=== PATIENT | male | born 1965 | race Caucasian/White ===

== ENCOUNTER 2018-04-18 06:36 | Day surgery (SDC) | payer OTHER ==
[~2018-04-18] VITALS: Ht 157.5 cm; Wt 71.8 kg
[~2018-04-18 06:36] MED LIST: DIPH25 PO; IBUP-2070 PO; MULT-1203 PO; RINGERS SOLUTION,LACTATED 1,000 ML IV ONE; RISP1 PO
[2018-04-18] MEDS ORDERED: PHENYLEPHRINE HCL 1% 15 ML NASAL SPRAY NASAL ONE (06:37)
[2018-04-18] MEDS ORDERED: LIDOCAINE HCL/PF 2% 5 ML VIAL IM ONE (06:37)
[2018-04-18] MEDS ORDERED: METOCLOPRAMIDE HCL 5 MG/ML 2 ML VIAL IVP ONE (06:37)
[2018-04-18] MEDS ORDERED: PROPOFOL 1% 20 ML VIAL IVP ONE (06:37)
[2018-04-18] MEDS ORDERED: GLYCOPYRROLATE 0.2 MG/ML VIAL IM ONE (06:37)
[2018-04-18] MEDS ORDERED: DEXAMETHASONE SOD PHOS 4 MG/ML VIAL IVP ONE (06:37)
[2018-04-18] MEDS ORDERED: SUCCINYLCHOLINE CHLORIDE 20 MG/ML 10 ML VIAL IVP ONE ×2 (06:37)
[2018-04-18] MEDS ORDERED: AMPICILLIN SODIUM 1 GM/VIAL ONE ×2 (06:45→07:53)
[2018-04-18] MEDS ORDERED: RINGERS SOLUTION,LACTATED 1,000 ML IV ONE ×2 (07:00→11:53)
[2018-04-18] MEDS ORDERED: MEPERIDINE HCL/PF 25 MG/0.5 ML AMP IVP PRN (09:45)
[2018-04-18] MEDS ORDERED: HYDROmorphone 2 MG/ML SYRINGE IVP PRN (09:45)
[2018-04-18] MEDS ORDERED: OXYGEN THERAPY IH SCH (09:45)
[2018-04-18] MEDS: FentaNYL CITRATE-PF 100 MCG/2 ML VIAL IVP PRN ×2 (12:30→12:35)
[2018-04-18] MEDS ORDERED: FentaNYL CITRATE-PF 100 MCG/2 ML VIAL ONE (12:33)
[2018-04-18] MEDS ORDERED: MEPERIDINE HCL/PF 25 MG/0.5 ML AMP ONE (12:39)
== END 2018-04-18 14:05 | disposition home or self-care (01) ==
LOC: SURGERY 06:36 → EDSTATUS 10:15 → SURGERY 14:05
PROVIDERS: ATTEND Dentist General Practice
DX: K05.30 Chronic periodontitis, unspecified (principal); F72 Severe intellectual disabilities; K21.9 Gastro-esophageal reflux disease without esophagitis; Q90.9 Down syndrome, unspecified; Z91.011 Allergy to milk products; Z79.1 Long term (current) use of non-steroidal anti-inflammatories (NSAID); Z79.899 Other long term (current) drug therapy
CPT/HCPCS: 41899; 71045; 93005; J0290; J0330; J1100; J2704; J2765; J3010; J3490 ×2; J7120

== ENCOUNTER 2018-08-25 12:59 | Inpatient (IN) | payer MEDICARE, OTHER ==
[~2018-08-25] VITALS: Ht 157.5 cm; Wt 56.8 kg
[~2018-08-25 12:59] MED LIST changes: -RINGERS SOLUTION,LACTATED 1,000 ML IV ONE
[2018-08-25 13:49] LABS: BASOPHILS % (AUTO) 0.8 % (0.0-2.0); EOSINOPHILS % (AUTO) 0.8 % (1.0-6.0); HEMATOCRIT 41.4 % (41-53); HEMOGLOBIN 14.1 g/dL (13.5-17.5); LYMPHOCYTES # (AUTO) 2.3 K/uL (1.0-4.8); LYMPHOCYTES % (AUTO) 54.1 % (22.0-44.0); MEAN CORPUSCULAR HEMOGLOBIN 32.5 pg (26.0-34.0); MEAN CORPUSCULAR HGB CONC 34.1 G/dL (31.0-37.0); MEAN CORPUSCULAR VOLUME 95 fL (80-100); MONOCYTES # (AUTO) 0.4 K/uL (0.1-1.0); MONOCYTES % (AUTO) 9.8 % (2.0-9.0); NEUTROPHILS # (AUTO) 1.5 K/uL (1.8-7.7); NEUTROPHILS % (AUTO) 34.5 % (40.0-70.0); PLATELET COUNT (AUTO) 347 K/uL (150-450); RED BLOOD CELL COUNT(AUTO) 4.35 MIL/uL (4.50-5.90); RED CELL DISTRIBUTION WIDTH 14.9 % (11.5-14.5)
[2018-08-25 13:58] LABS: ANION GAP 5 mmol/L (8-16); CALCIUM, TOTAL 8.6 mg/dL (8.8-10.5); CARBON DIOXIDE 33 mmol/L (22-29); CHLORIDE 101 mmol/L (98-107); CREATININE 0.98 mg/dL (0.60-1.30); GLOMERULAR FILTR. RATE CALC > 60 mL/min (>60); GLUCOSE,RANDOM 102 mg/dL (70-110); POTASSIUM 3.7 mmol/L (3.5-5.1); SODIUM SERUM 139 mmol/L (136-145); UREA NITROGEN, BLOOD 10 mg/dL (7-18)
[2018-08-25 14:04] LABS: ALANINE AMINOTRANSFERASE 47 U/L (12-78); ALBUMIN 3.1 g/dL (3.4-5.0); ALKALINE PHOSPHATASE 108 U/L (46-116); ASPARTATE AMINOTRANSFERASE 34 U/L (15-37); BILIRUBIN,TOTAL 0.4 mg/dL (0.1-1.0); C-REACTIVE PROTEIN QUANT 0.99 mg/dL (0.00-0.30); TOTAL PROTEIN, SERUM 8.7 g/dL (6.4-8.2)
[2018-08-25 14:45] LABS: ERYTHROCYTE SEDIMENTATION RATE 60 MM/HR (0-15)
[2018-08-25 14:51] LABS: APPEARANCE,URINE CLEAR (CLEAR); BILIRUBIN,URINE NEGATIVE (NEGATIVE); GLUCOSE, URINE (UA) NEGATIVE (NEGATIVE); KETONES,URINE NEGATIVE (NEGATIVE); LEUKOCYTE ESTERASE ,URINE NEGATIVE (NEGATIVE); NITRATE,URINE NEGATIVE (NEGATIVE); OCCULT BLOOD,URINE NEGATIVE (NEGATIVE); PH,URINE 6.5 (5.0-8.0); PROTEIN,URINE NEGATIVE (NEGATIVE); UROBILINOGEN,URINE 0.2 mg/dL (<=1.0)
[2018-08-25] MEDS ORDERED: ALBUTEROL SULFATE 2.5 MG/0.5 ML NEB SOLUTION NEB ONE (15:30)
[2018-08-25] MEDS ORDERED: IPRATROPIUM BROMIDE 0.5 MG/2.5 ML NEB SOLUTION NEB ONE (15:30)
[2018-08-25] MEDS ORDERED: VANCOMYCIN HCL 1 GM/D5% WATER 200 ML IV ONE (15:30)
[2018-08-25] MEDS ORDERED: 0.9% SODIUM CHLORIDE 5 ML NEB SOLUTION NEB ONE (15:41)
[2018-08-25] MEDS ORDERED: ACETAMINOPHEN 325 MG TABLET PO PRN (16:00)
[2018-08-25] MEDS ORDERED: ONDANSETRON HCL 4 MG/2 ML VIAL IVP PRN ×2 (16:00→19:30)
[2018-08-25] MEDS ORDERED: 0.9% SODIUM CHLORIDE 10 ML SYRINGE IVP PRN ×2 (16:00→19:30)
[2018-08-25] MEDS ORDERED: MAGNESIUM SULFATE 4 GM/WATER 100 ML IV PRN (19:30)
[2018-08-25] MEDS ORDERED: POTASSIUM CHLORIDE 20 MEQ ER TABLET PO PRN (19:30)
[2018-08-25] MEDS ORDERED: MAGNESIUM SULFATE 2 GM/WATER 50 ML IV PRN (19:30)
[2018-08-25] MEDS ORDERED: MAGNESIUM OXIDE 400 MG TABLET PO PRN (19:30)
[2018-08-25] MEDS ORDERED: ZOLPIDEM TARTRATE 5 MG TABLET PO PRN (19:30)
[2018-08-25] MEDS ORDERED: IBUPROFEN 600 MG TABLET PO PRN (19:30)
[2018-08-25] MEDS ORDERED: POTASSIUM CHL 10 MEQ/WATER 50 ML IV PRN (19:30)
[2018-08-25] MEDS: PANTOPRAZOLE SODIUM 40 MG/VIAL IVP SCH (20:16)
[2018-08-25] MEDS: RisperiDONE 1 MG TABLET PO SCH (20:16)
[2018-08-25] MEDS: DiphenhydrAMINE HCL 25 MG CAPSULE PO SCH (20:16)
[2018-08-25] MEDS: ENOXAPARIN SODIUM 40 MG/0.4 ML PF SYRINGE SQ SCH (20:16)
[2018-08-25] MEDS: MULTIVITAMINS, THERAPEUTIC TABLET PO SCH (20:19)
[2018-08-25 20:22] VITALS: BP 144/98
[2018-08-25] MEDS: MVI, ADULT NO.1 WITH VIT K 10 ML in SODIUM CHLORIDE 0.9% 1,000 ML IV SCH ×2 (21:40)
[2018-08-26] VITALS (7 sets, daily range): BP systolic 99–159; BP diastolic 58–96
[2018-08-26 06:53] LABS: BASOPHILS % (AUTO) 1.1 % (0.0-2.0); EOSINOPHILS % (AUTO) 0.9 % (1.0-6.0); HEMATOCRIT 37.1 % (41-53); LYMPHOCYTES # (AUTO) 1.6 K/uL (1.0-4.8); LYMPHOCYTES % (AUTO) 46.5 % (22.0-44.0); MEAN CORPUSCULAR HEMOGLOBIN 33.5 pg (26.0-34.0); MEAN CORPUSCULAR HGB CONC 35.2 G/dL (31.0-37.0); MEAN CORPUSCULAR VOLUME 95 fL (80-100); MONOCYTES # (AUTO) 0.4 K/uL (0.1-1.0); MONOCYTES % (AUTO) 10.6 % (2.0-9.0); NEUTROPHILS # (AUTO) 1.4 K/uL (1.8-7.7); NEUTROPHILS % (AUTO) 40.9 % (40.0-70.0); PLATELET COUNT (AUTO) 287 K/uL (150-450); RED BLOOD CELL COUNT(AUTO) 3.89 MIL/uL (4.50-5.90); RED CELL DISTRIBUTION WIDTH 14.9 % (11.5-14.5)
[2018-08-26 07:01] LABS: ALANINE AMINOTRANSFERASE 38 U/L (12-78); ALBUMIN 2.6 g/dL (3.4-5.0); ALKALINE PHOSPHATASE 93 U/L (46-116); ANION GAP 5 mmol/L (8-16); ASPARTATE AMINOTRANSFERASE 27 U/L (15-37); BILIRUBIN,TOTAL 0.5 mg/dL (0.1-1.0); C-REACTIVE PROTEIN QUANT 0.75 mg/dL (0.00-0.30); CALCIUM, TOTAL 8.1 mg/dL (8.8-10.5); CARBON DIOXIDE 30 mmol/L (22-29); CHLORIDE 105 mmol/L (98-107); CREATININE 0.86 mg/dL (0.60-1.30); GLOMERULAR FILTR. RATE CALC > 60 mL/min (>60); GLUCOSE,RANDOM 91 mg/dL (70-110); POTASSIUM 3.5 mmol/L (3.5-5.1); SODIUM SERUM 140 mmol/L (136-145); TOTAL PROTEIN, SERUM 7.2 g/dL (6.4-8.2); UREA NITROGEN, BLOOD 7 mg/dL (7-18)
[2018-08-26 08:27] LABS: ERYTHROCYTE SEDIMENTATION RATE 45 MM/HR (0-15)
[2018-08-26] MEDS: RisperiDONE 1 MG TABLET PO SCH (08:41)
[2018-08-26] MEDS: PANTOPRAZOLE SODIUM 40 MG/VIAL IVP SCH (08:41)
[2018-08-26] MEDS: MULTIVITAMINS, THERAPEUTIC TABLET PO SCH (08:41)
[2018-08-26] MEDS: ENOXAPARIN SODIUM 40 MG/0.4 ML PF SYRINGE SQ SCH (08:41)
[2018-08-26] MEDS: CefTRIAXone 1 GM/DEXTROSE 50 ML IV SCH (13:08)
[2018-08-26] MEDS: AZITHROMYCIN 500 MG/NS 250 ML IV SCH (13:44)
[2018-08-26] MEDS: MVI, ADULT NO.1 WITH VIT K 10 ML in SODIUM CHLORIDE 0.9% 1,000 ML IV SCH ×2 (20:07)
[2018-08-26] MEDS: DiphenhydrAMINE HCL 25 MG CAPSULE PO SCH (20:07)
[2018-08-27 05:15] VITALS: BP 130/49
[2018-08-27 07:37] VITALS: BP 105/59
[2018-08-27] MEDS: PANTOPRAZOLE SODIUM 40 MG/VIAL IVP SCH (08:51)
[2018-08-27] MEDS: ENOXAPARIN SODIUM 40 MG/0.4 ML PF SYRINGE SQ SCH (08:51)
[2018-08-27] MEDS: RisperiDONE 1 MG TABLET PO SCH (08:51)
[2018-08-27] MEDS: MULTIVITAMINS, THERAPEUTIC TABLET PO SCH (08:51)
[2018-08-27 11:28] VITALS: BP 107/52
[2018-08-27] MEDS: CefTRIAXone 1 GM/DEXTROSE 50 ML IV SCH (12:21)
[2018-08-27] MEDS: MVI, ADULT NO.1 WITH VIT K 10 ML in SODIUM CHLORIDE 0.9% 1,000 ML IV SCH ×2 (12:21)
[2018-08-27] MEDS: AZITHROMYCIN 500 MG/NS 250 ML IV SCH (13:41)
[2018-08-27 16:06] VITALS: BP 108/57
[2018-08-27 19:54] VITALS: BP 101/53
[2018-08-27] MEDS: DiphenhydrAMINE HCL 25 MG CAPSULE PO SCH (21:10)
[2018-08-27 23:53] VITALS: BP 121/67
[2018-08-28 03:41] VITALS: BP 113/65
[2018-08-28 07:26] VITALS: BP 122/62
[2018-08-28] MEDS: RisperiDONE 1 MG TABLET PO SCH (08:31)
[2018-08-28] MEDS: MULTIVITAMINS, THERAPEUTIC TABLET PO SCH (08:31)
[2018-08-28] MEDS: PANTOPRAZOLE SODIUM 40 MG/VIAL IVP SCH (08:31)
[2018-08-28] MEDS: ENOXAPARIN SODIUM 40 MG/0.4 ML PF SYRINGE SQ SCH (08:31)
[2018-08-28] MEDS: MVI, ADULT NO.1 WITH VIT K 10 ML in SODIUM CHLORIDE 0.9% 1,000 ML IV SCH ×2 (11:40)
[2018-08-28] MEDS: CefTRIAXone 1 GM/DEXTROSE 50 ML IV SCH (11:40)
[2018-08-28 12:09] VITALS: BP 110/92
[2018-08-28 12:14] LABS: GLUCOMETER DEV NAME(LOC) 6N.2; GLUCOSE,POINT OF CARE 101 MG/DL (70-110)
[2018-08-28] MEDS: AZITHROMYCIN 500 MG/NS 250 ML IV SCH (13:27)
[2018-08-28 16:41] VITALS: BP 117/71
== END 2018-08-28 18:30 | disposition home health service (06) | DRG 291 ==
LOC: EMS 13:00 → UNDOADMIN 17:52 → 6N 17:52
PROVIDERS: ADMIT Internal Medicine; ATTEND Internal Medicine
DX: I50.33 Acute on chronic diastolic (congestive) heart failure (principal); J18.9 Pneumonia, unspecified organism; R65.11 Systemic inflammatory response syndrome (SIRS) of non-infectious origin with acute organ dysfunction; J98.11 Atelectasis; L97.319 Non-pressure chronic ulcer of right ankle with unspecified severity; Q90.9 Down syndrome, unspecified
CPT/HCPCS: 51701; 71250; 73721; 83605; 83735; 85651; 86140; 87040; 87070; 87081; 87086; 92526; 92610; 93306; 94640; 96365; 96366; C9113; G0378; J0456; J0696; J1650; J3370; J3490; J7030

== ENCOUNTER 2018-11-15 12:00 | Emergency (ER) | payer MEDICARE, OTHER ==
[~2018-11-15] VITALS: Ht 162.6 cm; Wt 61.9 kg
[~2018-11-15 12:00] MED LIST changes: +ACET-2247 PO; +AMIN30LI7 PO; +ASCO500 PO; +BISA10SU61 PR; +FE PR; +MOM30 PO; +RISP.5 PO; -RISP1 PO
[2018-11-15 14:07] LABS: APPEARANCE,URINE CLEAR (CLEAR); BILIRUBIN,URINE NEGATIVE (NEGATIVE); GLUCOSE, URINE (UA) NEGATIVE (NEGATIVE); KETONES,URINE NEGATIVE (NEGATIVE); LEUKOCYTE ESTERASE ,URINE NEGATIVE (NEGATIVE); NITRATE,URINE NEGATIVE (NEGATIVE); OCCULT BLOOD,URINE NEGATIVE (NEGATIVE); PH,URINE 6.5 (5.0-8.0); PROTEIN,URINE NEGATIVE (NEGATIVE); UROBILINOGEN,URINE 0.2 mg/dL (<=1.0)
[2018-11-15 14:49] LABS: BASOPHILS % (AUTO) 0.9 % (0.0-2.0); EOSINOPHILS % (AUTO) 0.3 % (1.0-6.0); HEMATOCRIT 46.2 % (41-53); HEMOGLOBIN 15.3 g/dL (13.5-17.5); LYMPHOCYTES # (AUTO) 1.5 K/uL (1.0-4.8); LYMPHOCYTES % (AUTO) 41.2 % (22.0-44.0); MEAN CORPUSCULAR HEMOGLOBIN 31.6 pg (26.0-34.0); MEAN CORPUSCULAR HGB CONC 33.2 G/dL (31.0-37.0); MEAN CORPUSCULAR VOLUME 95 fL (80-100); MONOCYTES # (AUTO) 0.3 K/uL (0.1-1.0); MONOCYTES % (AUTO) 9.4 % (2.0-9.0); NEUTROPHILS # (AUTO) 1.8 K/uL (1.8-7.7); NEUTROPHILS % (AUTO) 48.2 % (40.0-70.0); PLATELET COUNT (AUTO) 314 K/uL (150-450); RED BLOOD CELL COUNT(AUTO) 4.86 MIL/uL (4.50-5.90); RED CELL DISTRIBUTION WIDTH 15.6 % (11.5-14.5)
[2018-11-15 15:03] LABS: ANION GAP 5 mmol/L (8-16); CALCIUM, TOTAL 9.5 mg/dL (8.8-10.5); CARBON DIOXIDE 30 mmol/L (22-29); CHLORIDE 99 mmol/L (98-107); CREATININE 0.95 mg/dL (0.60-1.30); GLOMERULAR FILTR. RATE CALC > 60 mL/min (>60); GLUCOSE,RANDOM 91 mg/dL (70-110); POTASSIUM 4.3 mmol/L (3.5-5.1); SODIUM SERUM 134 mmol/L (136-145); UREA NITROGEN, BLOOD 10 mg/dL (7-18)
[2018-11-15 15:10] LABS: ALANINE AMINOTRANSFERASE 35 U/L (12-78); ALBUMIN 3.6 g/dL (3.4-5.0); ALKALINE PHOSPHATASE 112 U/L (46-116); ASPARTATE AMINOTRANSFERASE 27 U/L (15-37); BILIRUBIN,TOTAL 0.4 mg/dL (0.1-1.0); TOTAL PROTEIN, SERUM 9.2 g/dL (6.4-8.2)
[2018-11-15] MEDS ORDERED: TAMSULOSIN HCL 0.4 MG CAPSULE PO ONE (17:30)
[2018-11-15 20:57] VITALS: BP 100/60
== END 2018-11-15 22:08 | disposition home or self-care (01) ==
LOC: EMS 12:00
DX: R33.9 Retention of urine, unspecified (principal); Q90.9 Down syndrome, unspecified; I50.9 Heart failure, unspecified; Z91.011 Allergy to milk products
CPT/HCPCS: 51702